=== PATIENT | male | born 1985 | race Caucasian/White ===

== ENCOUNTER 2017-05-01 16:40 | Emergency (ER) | payer MEDICARE | END 2017-05-01 19:20 | disposition home or self-care (01) | LOC: ER 16:40 | DX: J03.00 Acute streptococcal tonsillitis, unspecified (principal); R11.2 Nausea with vomiting, unspecified; E11.9 Type 2 diabetes mellitus without complications; I10 Essential (primary) hypertension; F17.210 Nicotine dependence, cigarettes, uncomplicated; Z88.0 Allergy status to penicillin; Z79.899 Other long term (current) drug therapy | CPT/HCPCS: 36415; 96361; 96365; 96375; J0696 ==